=== PATIENT | male | born 1980 | race Caucasian/White ===

== ENCOUNTER → 2019-06-07 | Outpatient (CLI) | payer OTHER ==
[~2019-06-07] MED LIST: CEP500 PO; NO RTN MEDS
[2019-06-07 10:27] LABS: PLATELET COUNT, AUTOMATED 234 K/uL (150-450)
== END ==
LOC: LAB 10:01
PROVIDERS: ATTEND Internal Medicine
DX: E78.5 Hyperlipidemia, unspecified (principal); R79.0 Abnormal level of blood mineral
CPT/HCPCS: 36415; 81256; 82728; 85025